=== PATIENT | female | born 1950 | race Caucasian/White ===

== ENCOUNTER → 2018-01-11 | Outpatient (CLI) | payer OTHER ==
[~2018-01-11] VITALS: Ht 162.6 cm; Wt 99.8 kg
[~2018-01-11] MED LIST: ALIVE WOMEN'S1 EACH PO; CALCIUM/D3 PO; CYMBALTA60 MG PO; HYDROCHLOROTHIA25 MG PO; LIPITOR20 MG PO; LO-DOSE ASPIRIN81 M1 PO; NORVASC5 MG PO; SYNTHROID50 MCG PO
[2018-01-11 10:26] LABS: CHLORIDE 101 MEQ/L (99-109); CREATININE 0.8 MG/DL (0.6-1.3); GFR ESTIMATE (CALCULATED) > 59 mL/min/; GLUCOSE 109 mg/dL (70-99); POTASSIUM 3.8 MEQ/L (3.7-5.4); SODIUM 139 MEQ/L (136-147); UREA NITROGEN (BUN) 18 mg/dL (9-23)
== END | disposition home or self-care (01) ==
LOC: AMB 09:09
PROVIDERS: Anesthesiology
PROC: 0DBL8ZX Excision of Transverse Colon, Via Natural or Artificial Opening Endoscopic, Diagnostic (ICD-10-PCS; principal; 2018-01-11)
DX: Z12.11 Encounter for screening for malignant neoplasm of colon (principal); D12.3 Benign neoplasm of transverse colon; K64.8 Other hemorrhoids; Z80.0 Family history of malignant neoplasm of digestive organs; Z87.891 Personal history of nicotine dependence
CPT/HCPCS: 80048; 88305; 93005